=== PATIENT | male | born 1960 | race Caucasian/White ===

== ENCOUNTER 2017-02-28 06:43 | Emergency (ER) | payer BC ==
[~2017-02-28] VITALS: Ht 167.6 cm; Wt 95.5 kg
[~2017-02-28 06:43] MED LIST: ASPI81TA57 PEG; CALCCHW57 PO; CHOL1CAP95 PO
[2017-02-28 06:56] VITALS: TEMP 36.8; Ht 167.6 cm; Wt 95.5 kg
--- NOTE | 2017-02-28 07:25 | EMERGENCY ROOM VISIT NOTE ---
History First contact with patient: 07:05 Chief Complaint: PENIS PAIN Stated Complaint: SKIN ITCHING/SWELLING ON SCROTEM AND BASE OF PENIS Nursing Triage Summary: pt reports reports 2 weeks ago noted a small rash on testicles, then thurs notes rash has spread to bilat testicles and penis Thurs to urgent care given anti fungual cream with no relief denies DC or urinary sx History of Present Illness The patient is a 56 year old male who presents to the Emergency Room with complaints of genital rash. The patient states that he noticed a rash to his testicles 2 weeks ago. He states that he has noticed the rash spreading to both testicles and the base of the penis. He was seen by urgent care 3 days ago and given an antifungal cream which has not helped. He reports testicular swelling but no tenderness. He denies any dysuria, urgency, frequency or hematuria. He denies any abdominal pain, nausea or vomiting. He denies any fevers. The patient states he does have a concern for STD. He denies any history of STD. He states that the rash is itchy but denies true pain. Review of Systems A 10 system review of systems was completed with positives and pertinent negatives listed in the HPI. Past Medical/Surgical History Patient denies Social History Smoking Status: Current Every Day Smoker Marital Status: single Current/Historical Medications Scheduled Aspirin (Aspir-81), 1 TAB PO DAILY Calcium Carbonate-Vitamin D W/ (Calcium 1200), PO DIRECTED Cephalexin Monohydrate (Keflex), 500 MG PO QID Cholecalciferol (Vitamin D3), 1 CAP PO weekly Sulfa/Trimethoprim (Bactrim Ds 800MG/160MG), 1 TAB PO BID Allergies Coded Allergies: No Known Allergies (Unverified , 02/28/17) Physical Exam Vital Signs Date Time Temp Pulse Resp B/P Pulse Ox O2 Delivery O2 Flow Rate FiO2 02/28/17 09:45 70 20 152/98 97 02/28/17 08:30 63 18 163/96 96 Room Air 02/28/17 06:56 36.8 89 18 131/69 95 Room Air Physical Exam VITALS: Vitals are noted on the nurse's note and reviewed by myself. Vital signs stable. The patient is afebrile. GENERAL: This is a 56-year-old male, in no acute distress, nondiaphoretic, well- developed well-nourished. SKIN: There is no tenting of the skin. Capillary reflex less than 2 seconds. HEAD: Normocephalic atraumatic. EARS: The external ears are normal in appearance. EYES: Pupils equal round and reactive to light and accommodation. Conjunctivae without injection, sclerae without icterus. Extraocular movements intact. NOSE: Patent, turbinates without inflammation or discharge. MOUTH: Mucous membranes moist. Tonsils are not enlarged. Pharynx without erythema or exudate. Uvula midline. Airway patent. Tongue does not deviate. NECK: Supple without nuchal rigidity. No lymphadenopathy. No thyromegaly. Cervical spine is nontender. No JVD. HEART: Regular rate and rhythm without murmurs gallops or rubs. LUNGS: Clear to auscultation bilaterally without wheezes, rales or rhonchi. No retractions or accessory muscle use. ABDOMEN: Positive bowel sounds x 4. Soft, nontender, without masses or organomegaly. : There is thickening of the skin over the scrotum and base of penis. There is mild erythema. There is no warmth. There are no raised or vesicular lesions. There is no discharge from the penis. The testicles are nontender but there is swelling noted to the right testicle. There is no obvious palpable mass. MUSCULOSKELETAL: No muscle atrophy, erythema, or edema noted. Full range of motion in all extremities. Normal gait. Strength 5/5 throughout. NEURO: Patient was alert and oriented to person place and time. No focal neurological deficits. Medical Decision & Procedures ER Provider Diagnostic Interpretation: SCROTAL ULTRASOUND CLINICAL HISTORY: Testicular pain and swelling. COMPARISON STUDY: None. TECHNIQUE: Grayscale and color and duplex Doppler sonography of the scrotum was performed. FINDINGS: Note is made of scrotal wall thickening/edema. The right testis measures 4.7 x 3 x 3.3 cm and the left measures 4.6 x 2.6 x 2.5 cm. There is no testicular mass. Color flow within each testis is present. There are small bilateral hydroceles. There are small bilateral epididymal head cysts. There is no evidence of epididymitis. IMPRESSION: 1. Normal sonographic appearance of the testes. 2. Scrotal wall thickening/edema. 3. Small bilateral hydroceles. Laboratory Results Test 02/28/17 00:00 02/28/17 07:30 Urine Color YELLOW Urine Appearance CLEAR (CLEAR) Urine pH 7.5 (4.5-7.5) Urine Specific [place] 1.007 (1.000-1.030) Urine Protein NEG (NEG) Urine Glucose (UA) NEG (NEG) Urine Ketones NEG (NEG) Urine Occult Blood NEG (NEG) Urine Nitrite NEG (NEG) Urine Bilirubin NEG (NEG) Urine Urobilinogen NEG (NEG) Urine Leukocyte Esterase NEG (NEG) ED Course The patient was seen and examined. Previous visits were reviewed. The patient medication list was reviewed. The patient does not have a fever. He is nontoxic in appearance. The patient presents with a rash in the groin. I suspect that he has a cellulitis. Ultrasound there is scrotal wall thickening. There is no obvious abscess. Urinalysis is not reveal urinary tract infection. The patient states that he is concern for STD. Gonorrhea and chlamydia culture was obtained and sent and is pending. I offered to empirically treat the patient for gonorrhea and chlamydia but he declines and would like to wait for the culture results. I discussed the case with Dr. Fitch who also agrees with cellulitis. The patient will be placed on Bactrim and Keflex. He should return if any worsening symptoms. He was advised that we will contact him if the results of the cultures indicate a need for change in treatment. The case was discussed with Dr. Lamb who agrees with the assessment and treatment plan. Medical Decision The differential diagnosis includes ST D, cellulitis, scrotal abscess, fungal infection, erythrasma, among others Impression Primary Impression: Cellulitis, scrotum Departure Information Dispostion Home / Self-Care Condition GOOD Prescriptions Cephalexin Monohydrate (Keflex) 500 Mg Cap 500 MG PO QID for 10 Days, #40 CAP Prov: Tawny Good PA-C 02/28/17 Sulfa/Trimethoprim (Bactrim Ds 800MG/160MG) Tab 1 TAB PO BID, #20 TAB Prov: Tawny Good PA-C 02/28/17 Referrals No Doctor, Assigned (PCP) Patient Instructions Cellulitis - [facility], [facility] Additional Instructions bactrim and keflex as prescribed until finished Return with worsening symptoms, black discoloration of the skin, open areas or generalized worsening symptoms Otherwise, follow up with your family doctor next week for recheck
[2017-02-28 07:45] LABS: URINE APPEARANCE CLEAR (CLEAR); URINE BILIRUBIN NEG (NEG); URINE COLOR YELLOW; URINE NITRITE NEG (NEG); URINE PH 7.5 (4.5-7.5); URINE SPECIFIC GRAVITY 1.007 (1.000-1.030); UROBILINOGEN NEG (NEG); ZZUR CULT IF INDIC CLEAN CATCH NO
[2017-02-28 07:48] LABS: MANUAL MICROSCOPIC REQUIRED? NO; REVIEW REQ? NO
--- NOTE | 2017-02-28 08:16 | DIAGNOSTIC IMAGING REPORT ---
SCROTAL ULTRASOUND CLINICAL HISTORY: Testicular pain and swelling. COMPARISON STUDY: None. TECHNIQUE: Grayscale and color and duplex Doppler sonography of the scrotum was performed. FINDINGS: Note is made of scrotal wall thickening/edema. The right testis measures 4.7 x 3 x 3.3 cm and the left measures 4.6 x 2.6 x 2.5 cm. There is no testicular mass. Color flow within each testis is present. There are small bilateral hydroceles. There are small bilateral epididymal head cysts. There is no evidence of epididymitis. IMPRESSION: 1. Normal sonographic appearance of the testes. 2. Scrotal wall thickening/edema. 3. Small bilateral hydroceles. Electronically signed by: Kayden Colunga M.D. 02/28/2017 8:14 AM Dictated Date/Time: 02/28/2017 8:13 AM
[2017-02-28] MEDS ORDERED: ASPI-232 PO (09:08)
[2017-02-28] MEDS ORDERED: SULF800T23 PO ×2 (09:33→09:42)
[2017-02-28] MEDS ORDERED: CEPH500C PO ×2 (09:33→09:42)
[2017-02-28 09:45] VITALS: BP 152/98; PULSE 70; O2SAT 97
[2017-03-03 15:13] LABS: CHLAMYDIA TRACH RNA*** NOT DETECTED (NOT DETECTED); GC (NEIS GONORRHOEAE)RNA** NOT DETECTED (NOT DETECTED)
== END 2017-02-28 09:59 | disposition home or self-care (01) ==
LOC: C.EDB 06:44
DX: N49.2 Inflammatory disorders of scrotum (principal); Z79.82 Long term (current) use of aspirin; Z79.899 Other long term (current) drug therapy; F17.200 Nicotine dependence, unspecified, uncomplicated

== ENCOUNTER → 2018-01-05 | Outpatient (CLI) | payer BC ==
[~2018-01-05] MED LIST changes: +ASPI-232 PO; -ASPI81TA57 PEG
[2018-01-05 14:01] LABS: BLOOD UREA NITROGEN 17 mg/dl (7-18); CALCIUM 9.2 mg/dl (8.5-10.1); CARBON DIOXIDE 28 mmol/L (21-32); CREATININE 0.99 mg/dl (0.60-1.40); GLUCOSE 93 mg/dl (70-99); POTASSIUM 4.2 mmol/L (3.5-5.1); SODIUM 137 mmol/L (136-145)
== END | disposition home or self-care (01) ==
LOC: C.LABPVFM 08:13
PROVIDERS: ATTEND Family Medicine
DX: Z13.220 Encounter for screening for lipoid disorders (principal); L03.211 Cellulitis of face